=== PATIENT | female | born 1985 | race African-American/Black ===

== ENCOUNTER → 2016-04-11 | Outpatient (CLI) | payer BC ==
--- NOTE | 2016-04-11 11:05 | REP ---
Lumbar spine series: Six views. History: Acute low back pain, left-sided sciatica. No comparison views. Findings: Lumbar vertebral body heights are preserved and alignment is normal. Disc spaces are maintained. Flexion extension lateral views are unremarkable. There is mild discogenic spurring at T11-12 in the lower thoracic spine. The pedicles and the posterior elements are intact in the lumbar spine. There is no evidence of spondylolysis or spondylolisthesis. Psoas margins are symmetric. Sacrum and SI joints are intact. Impression: Mild discogenic spurring at T11-12 in the lower thoracic spine. Otherwise negative lumbar spine radiographs. Signed by Ishmael Jones MD 04/11/2016 02:33 P
== END ==
LOC: M LRY 10:13
PROVIDERS: ATTEND Nurse Practitioner Family
DX: M25.78 Osteophyte, vertebrae (principal)